=== PATIENT | female | born 2005 | race Caucasian/White ===

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

== ENCOUNTER 2025-03-06 19:57 | Emergency (ER) | payer OTHER ==
[2025-03-06 20:05] VITALS: BP 121/82; PULSE 93; RESP 18; TEMP 98.4; BMI 26.6
[2025-03-06 20:28] LABS: EPI CELLS 8 /uL (0-25.1); HCG,QUALITATIVE URINE Negative; HYALINE CASTS 0 /uL (0-3.1); URINE APPEARANCE CLEAR; URINE BACTERIA 54 /uL (0-1359); URINE BILIRUBIN NEGATIVE (NEGATIVE); URINE COLOR YELLOW; URINE GLUCOSE (UA) NEGATIVE (NEGATIVE); URINE KETONE NEGATIVE (NEGATIVE); URINE LEUK ESTERASE NEGATIVE (NEGATIVE); URINE NITRITE NEGATIVE (NEGATIVE); URINE PROTEIN NEGATIVE (NEGATIVE); URINE RBC 24 /uL (0-23.9); URINE UROBILINOGEN 0.2 mg/dL (0.2-1.0); URINE WBC 9 /uL (0-25.8)
[2025-03-06] MEDS ORDERED: KETOROLAC TROMETHAMINE 15 MG/ML VIAL ONE (21:53)
[2025-03-06 21:56] LABS: ABSOLUTE IMMATURE GRANULOCYTES 0.03 x10^3/uL (0.0-0.031); BASOPHILS # 0.03 x10^3/uL (0.01-0.08); EOSINOPHIL % 0.7 % (0.7-5.8); EOSINOPHILS # 0.08 x10^3/uL (0.04-0.36); MCHC 33.7 g/dl (32.2-35.5); MEAN CELL VOLUME 86.5 fl (79.4-94.8); MEAN PLT VOLUME 10.4 fl (9.4-12.3); MONOCYTE # 0.78 x10^3/uL (0.24-0.86); MONOCYTE % 7.2 % (4.7-12.5); RDW 12.0 % (12.1-16.5)
[2025-03-06] MEDS: KETOROLAC TROMETHAMINE 15 MG/ML VIAL IVPUSH ONE (22:00)
[2025-03-06 23:06] LABS: GLUCOSE,RANDOM 83.0 mg/dL (74-106); TOT PROT 8.0 g/dl (6.4-8.2)
[2025-03-06 23:07] LABS: CO2 24.0 mmol/L (21-32)
[2025-03-06 23:09] LABS: ALK PHOS 85.0 U/L (40-150)
[2025-03-06 23:11] LABS: SGOT/AST 19.0 U/L (5-34); SGPT/ALT 14.0 U/L (0-55)
[2025-03-06 23:12] LABS: CREATININE 0.64 mg/dL (0.55-1.3)
[2025-03-06 23:32] LABS: HCV DIAGNOSTIC IN-HOUSE W/RFLX NON-REACTIVE (NONREACTIVE); HIV INTERPRETATION NEGATIVE (NEGATIVE)
[2025-03-06] MEDS ORDERED: LIDOCAINE 4% PATCH TP ONE (23:44)
== END 2025-03-06 23:46 | disposition home or self-care (01) ==
LOC: JER 19:57
PROC: 3E0333Z Introduction of Anti-inflammatory into Peripheral Vein, Percutaneous Approach (ICD-10-PCS; principal; 2025-03-06)
DX: N83.201 Unspecified ovarian cyst, right side (principal); M54.50 Low back pain, unspecified; R10.31 Right lower quadrant pain; R10.2 Pelvic and perineal pain
CPT/HCPCS: 36415; 76775-TC; 76830-TC; 76857; 80053; 81003; 84703; 85025; 86140; 86803; 87086; 87389; 99285-25